=== PATIENT | female | born 1940 | race Caucasian/White ===

== ENCOUNTER 2017-06-07 09:46 | Day surgery (SDC) | payer OTHER ==
[~2017-06-07 09:46] MED LIST: ATORVASTATIN CA40 MG PO; BACTRIM,SEPT1 TABLET PO; CALCIUM 500 +1 EAC4 PO; CHLOROTHIAZIDE500 MG PO; CIPRO500 MG PO; DITROPAN XL10 MG PO; EFFEXOR XR75 MG PO; FLOVENT 11120 INHALA IH; LEVOFLOXACIN750 MG PO; MULTIVITAMIN1 EAC2 PO; NEXIUM 24HR20 MG PO; PERCOCET 5/31 TABLET PO; POTASSIUM-9999 MG PO; PREDNISONE5 MG PO; PROVENTIL,2.5 MG/3 M IH; RHINOCORT AQUA8.6 G1 NS; SPIRIVA RESPIMAT4 GM IH; SYNTHROID100 MCG PO; SYNTHROID125 MCG PO; SYNTHROID88 MCG PO; TESSALON PERLE100 MG PO; TRUSOPT5 ML BOTH EYES; ULTRAM50 MG PO; XALATAN2.5 ML BOTH EYES; ZYRTEC10 M3 PO
== END 2017-06-07 13:15 | disposition home or self-care (01) ==
LOC: PAIN 09:46 → SDC 10:30 → PAIN 13:15
DX: M47.26 Other spondylosis with radiculopathy, lumbar region (principal); E03.9 Hypothyroidism, unspecified; Z88.0 Allergy status to penicillin; M79.1 Myalgia; J45.909 Unspecified asthma, uncomplicated; E78.5 Hyperlipidemia, unspecified; R73.03 Prediabetes; Z79.84 Long term (current) use of oral hypoglycemic drugs; Z79.891 Long term (current) use of opiate analgesic
CPT/HCPCS: J1100; J3010